=== PATIENT | female | born 1945 | race Two or more races ===

== ENCOUNTER 2019-02-24 09:04 | Outpatient (CLI) | payer OTHER ==
[~2019-02-24 09:04] MED LIST: CIPRO750 MG PO; [UNRECOGNIZED DRUG - OTHER] IU
== END 2019-02-24 09:09 | disposition home or self-care (01) ==
LOC: SONOGRAMA 09:04
DX: E04.1 Nontoxic single thyroid nodule (principal)

== ENCOUNTER 2020-02-29 11:45 | Inpatient (IN) | payer OTHER ==
[~2020-02-29] VITALS: Ht 160 cm; Wt 90.7 kg
[~2020-02-29 11:45] MED LIST changes: +LOSARTAN PO; -[UNRECOGNIZED DRUG - OTHER] IU
[2020-02-29] MEDS ORDERED: LIPITOR20 MG PO (14:58)
[2020-02-29] MEDS ORDERED: HYDROCHLOROTHIA25 MG PO (14:58)
[2020-03-07] MEDS ORDERED: LOSARTAN POTAS100 MG (08:41)
== END 2020-03-08 18:56 | DRG 735 ==
LOC: OB/GYN 03-07 06:46 → O/R 03-07 06:46 → OB/GYN 03-07 11:45
PROVIDERS: ADMIT Obstetrics & Gynecology Gynecologic Oncology; ATTEND Obstetrics & Gynecology Gynecologic Oncology
PROC: 07TC4ZZ Resection of Pelvis Lymphatic, Percutaneous Endoscopic Approach (ICD-10-PCS; 2020-03-07)
PROC: 0UT24ZZ Resection of Bilateral Ovaries, Percutaneous Endoscopic Approach (ICD-10-PCS; 2020-03-07)
PROC: 0UB74ZZ Excision of Bilateral Fallopian Tubes, Percutaneous Endoscopic Approach (ICD-10-PCS; 2020-03-07)
PROC: 0UT94ZZ Resection of Uterus, Percutaneous Endoscopic Approach (ICD-10-PCS; principal; 2020-03-07 12:15)
DX: C54.1 Malignant neoplasm of endometrium (principal); N83.8 Other noninflammatory disorders of ovary, fallopian tube and broad ligament

== ENCOUNTER 2020-07-15 09:05 | Outpatient (CLI) | payer OTHER ==
[~2020-07-15 09:05] MED LIST changes: +HYDROCHLOROTHIA25 MG PO; +LIPITOR20 MG PO; +LOSARTAN POTAS100 MG
== END 2020-07-15 10:27 | disposition home or self-care (01) ==
LOC: SONOGRAMA 09:05
PROVIDERS: ATTEND Pathology Anatomic Pathology & Clinical Pathology
DX: E04.2 Nontoxic multinodular goiter (principal); E04.8 Other specified nontoxic goiter; D34 Benign neoplasm of thyroid gland; E07.89 Other specified disorders of thyroid

== ENCOUNTER 2020-09-17 06:30 | Emergency (ER) | payer OTHER ==
[~2020-09-17] VITALS: Ht 160 cm; Wt 90.7 kg
[2020-09-17] MEDS ORDERED: ADULT LOW DOSE81 M1 (06:40)
[2020-09-17] MEDS ORDERED: LEVSIN/SL0.125 MG SL (15:18)
[2020-09-17] MEDS ORDERED: PEPCID20 MG PO (15:18)
[2020-09-17] MEDS ORDERED: NORFLEX100MG PO (15:18)
== END 2020-09-17 16:07 | disposition home or self-care (01) ==
LOC: ER 06:30
DX: R10.13 Epigastric pain (principal); C54.1 Malignant neoplasm of endometrium